=== PATIENT | male | born 1955 | race Caucasian/White ===

== ENCOUNTER 2023-01-24 11:01 | Outpatient (CLI) | payer BC ==
[~2023-01-24 11:01] MED LIST: Magnevist 469MG/ML 20 ML VIAL ONE
== END 2023-01-24 11:02 | disposition home or self-care (01) ==
LOC: CSHMRI 11:01
PROVIDERS: ATTEND Urology
DX: R97.20 Elevated prostate specific antigen [PSA] (principal); N42.31 Prostatic intraepithelial neoplasia; R93.89 Abnormal findings on diagnostic imaging of other specified body structures
CPT/HCPCS: 72197; 82565; A9579